=== PATIENT | female | born 1960 | race Hispanic/Latino ===

== ENCOUNTER 2021-01-11 23:57 | Inpatient (IN) | payer SELFPAY ==
[~2021-01-11] VITALS: Ht 152.4 cm; Wt 61.2 kg
[2021-01-12] MEDS ORDERED: ONDANSETRON HCL 4 MG/2 ML VIAL ONE ×2 (00:41→17:45)
[2021-01-12] MEDS ORDERED: HYDROMORPHONE 1 MG/1 ML AMP ONE (00:41)
[2021-01-12 00:56] LABS: BASOPHILS % (AUTO) 0.1 % (0.0-5.0); EOSINOPHILS % (AUTO) 0.2 % (0.0-8.0); LYMPHOCYTES % (AUTO) 2.3 % (21.0-51.0); MEAN CORPUSCULAR HEMOGLOBIN 28.6 pg (27.0-33.0); MEAN CORPUSCULAR HGB CONC 34.6 g/dL (32.0-36.0); MEAN CORPUSCULAR VOLUME 82.8 fL (79-99); MONOCYTES % (AUTO) 1.8 % (3.0-13.0); PLATELET COUNT (AUTO) 484 K/uL (130-400); RED BLOOD CELL COUNT(AUTO) 4.47 MIL/uL (4.00-5.50); RED CELL DISTRIBUTION WIDTH 13.7 % (11.0-15.5); WHITE BLOOD COUNT (AUTO) 26.6 K/uL (4.8-10.8)
[2021-01-12 01:04] LABS: CREATININE 0.7 mg/dL (0.5-1.5); POTASSIUM 3.5 mmol/L (3.5-5.1)
[2021-01-12 01:09] LABS: ALBUMIN 3.2 g/dL (3.5-5.0); BILIRUBIN,TOTAL 1.2 mg/dL (0.2-1.0); TOTAL PROTEIN, SERUM 7.7 g/dL (6.0-8.3)
[2021-01-12] MEDS ORDERED: ZOSYN 3.375GM+NS 50ML 50 ML IV ONE ×3 (02:06→21:20)
[2021-01-12 02:10] LABS: AMYLASE 63 U/L (25-115); LIPASE 83 U/L (114-286)
[2021-01-12] MEDS ORDERED: MORPHINE SULFATE 2 MG/ML 1ML SYG IVP PRN (03:30)
[2021-01-12] MEDS: SODIUM CHLORIDE 0.9% 1000ML 1,000 ML IV SCH ×2 (03:30→13:30)
[2021-01-12] MEDS ORDERED: SODIUM CHLORIDE 0.9% 1000ML 1,000 ML IV SCH (03:30)
[2021-01-12] MEDS ORDERED: NITROGLYCERIN 0.4 MG SL TAB SL PRN (03:30)
[2021-01-12] MEDS ORDERED: SODIUM CHLORIDE 0.9% 1000ML 2,000 ML IV ONE (04:15)
[2021-01-12 05:24] LABS: CREATINE KINASE, TOTAL 56 U/L (21-232); MYOGLOBIN 30 ng/mL (10-92); TROPONIN I < 0.04 ng/mL (0.00-0.06)
[2021-01-12] MEDS ORDERED: ENOXAPARIN SODIUM 30 MG/0.3 ML SQ ONE (08:24)
[2021-01-12] MEDS ORDERED: FAMOTIDINE/PF 20 MG/2 ML VIAL IV ONE ×2 (08:25→21:20)
[2021-01-12] MEDS: ENOXAPARIN SODIUM 30 MG/0.3 ML SQ SCH (09:00)
[2021-01-12] MEDS: FAMOTIDINE/PF 20 MG/2 ML VIAL IV SCH ×2 (09:00→21:00)
[2021-01-12] MEDS: ZOSYN 3.375GM+NS 50ML 50 ML IV SCH ×2 (13:00→21:00)
[2021-01-12] MEDS ORDERED: SODIUM CHLORIDE 0.9% 1000ML 1,000 ML IV ONE (14:34)
[2021-01-12] MEDS ORDERED: HYDROMORPHONE HCL 0.5 MG/0.5 ML ML ONE (17:45)
[2021-01-12 21:36] LABS: APPEARANCE,URINE Clear (CLEAR); BILIRUBIN,URINE Small (NEGATIVE); COLOR,URINE Dark Yellow (YELLOW); GLUCOSE, URINE (UA) Negative (NEGATIVE); KETONES,URINE >=80 mg/dL (NEGATIVE); LEUKOCYTE ESTERASE ,URINE Trace (NEGATIVE); NITRATE,URINE Negative (NEGATIVE); OCCULT BLOOD,URINE Negative (NEGATIVE); PH,URINE 6.5 (5.0-8.0); PROTEIN,URINE Trace mg/dL (NEGATIVE); UROBILINOGEN,URINE 0.2 mg/dL (0.2-1.0)
[2021-01-12 22:10] LABS: BACTERIA,URINE Few /HPF (None Seen); MUCUS,URINE Rare LPF (None Seen); RBC,URINE 0-1 /HPF (0-1); SQUAMOUS EPITHELIAL CELL,UR Rare /HPF (0-2); WBC,URINE 0-1 /HPF (0-1)
[2021-01-12 22:11] LABS: AMORPHOUS SEDIMENT,UR Rare /LPF (None Seen)
[2021-01-12 23:50] VITALS: BP 153/81
[2021-01-13] MEDS: ONDANSETRON HCL 4 MG/2 ML VIAL IV PRN (00:01)
[2021-01-13] MEDS: SODIUM CHLORIDE 0.9% 1000ML 1,000 ML IV SCH ×3 (00:01→19:30)
[2021-01-13] MEDS: HYDROMORPHONE HCL 0.5 MG/0.5 ML ML IVP PRN ×5 (00:02→23:57)
[2021-01-13 03:20] VITALS: BP 145/82
[2021-01-13] MEDS: ZOSYN 3.375GM+NS 50ML 50 ML IV SCH ×3 (04:30→20:18)
[2021-01-13 05:23] LABS: BASOPHILS % (AUTO) 0.4 % (0.0-5.0); EOSINOPHILS % (AUTO) 0.6 % (0.0-8.0); HEMATOCRIT 32.6 % (36-48); LYMPHOCYTES % (AUTO) 6.2 % (21.0-51.0); MEAN CORPUSCULAR HEMOGLOBIN 27.7 pg (27.0-33.0); MEAN CORPUSCULAR HGB CONC 31.9 g/dL (32.0-36.0); MEAN CORPUSCULAR VOLUME 86.9 fL (79-99); MONOCYTES % (AUTO) 4.1 % (3.0-13.0); PLATELET COUNT (AUTO) 407 K/uL (130-400); RED BLOOD CELL COUNT(AUTO) 3.75 MIL/uL (4.00-5.50); RED CELL DISTRIBUTION WIDTH 14.1 % (11.0-15.5); WHITE BLOOD COUNT (AUTO) 16.6 K/uL (4.8-10.8)
[2021-01-13 05:42] LABS: ALBUMIN 2.3 g/dL (3.5-5.0); BILIRUBIN,TOTAL 1.3 mg/dL (0.2-1.0); CREATININE 0.7 mg/dL (0.5-1.5); POTASSIUM 3.9 mmol/L (3.5-5.1); TOTAL PROTEIN, SERUM 6.4 g/dL (6.0-8.3)
[2021-01-13] MEDS: FAMOTIDINE/PF 20 MG/2 ML VIAL IV SCH ×2 (07:52→20:18)
[2021-01-13 07:56] VITALS: BP 129/80
[2021-01-13] MEDS: ENOXAPARIN SODIUM 30 MG/0.3 ML SQ SCH (08:04)
[2021-01-13 11:29] VITALS: BP 132/76
[2021-01-13 16:31] VITALS: BP 141/84
[2021-01-13] MEDS: POLYETHYLENE GLYCOL 3350 17 GM POWD.PACK PO SCH (16:56)
[2021-01-13 19:45] VITALS: BP 138/77
[2021-01-13 23:46] VITALS: BP 156/86
[2021-01-14 03:47] VITALS: BP 149/84
[2021-01-14] MEDS: ZOSYN 3.375GM+NS 50ML 50 ML IV SCH ×3 (04:16→20:29)
[2021-01-14] MEDS: SODIUM CHLORIDE 0.9% 1000ML 1,000 ML IV SCH ×2 (04:21→16:33)
[2021-01-14] MEDS: HYDROMORPHONE HCL 0.5 MG/0.5 ML ML IVP PRN (05:44)
[2021-01-14 06:20] LABS: BASOPHILS % (AUTO) 0.3 % (0.0-5.0); HEMATOCRIT 30.6 % (36-48); LYMPHOCYTES % (AUTO) 5.4 % (21.0-51.0); MEAN CORPUSCULAR HEMOGLOBIN 27.7 pg (27.0-33.0); MEAN CORPUSCULAR HGB CONC 32.7 g/dL (32.0-36.0); MEAN CORPUSCULAR VOLUME 84.8 fL (79-99); MONOCYTES % (AUTO) 4.1 % (3.0-13.0); NEUTROPHILS % (AUTO) 88.6 % (40.0-77.0); PLATELET COUNT (AUTO) 430 K/uL (130-400); RED BLOOD CELL COUNT(AUTO) 3.61 MIL/uL (4.00-5.50); RED CELL DISTRIBUTION WIDTH 13.6 % (11.0-15.5); WHITE BLOOD COUNT (AUTO) 11.4 K/uL (4.8-10.8)
[2021-01-14 06:28] LABS: CREATININE 0.5 mg/dL (0.5-1.5); POTASSIUM 3.1 mmol/L (3.5-5.1)
[2021-01-14] MEDS ORDERED: POTASSIUM CHLORIDE 20MEQ/100ML 100 ML IV PRN (07:45)
[2021-01-14] MEDS ORDERED: POTASSIUM CHLORIDE 10% ELIXIR 20 MEQ/15 ML UDCUP PO PRN (07:45)
[2021-01-14 08:20] LABS: ALBUMIN 2.1 g/dL (3.5-5.0); BILIRUBIN,TOTAL 1.7 mg/dL (0.2-1.0); TOTAL PROTEIN, SERUM 6.1 g/dL (6.0-8.3)
[2021-01-14 08:24] VITALS: BP 138/85
[2021-01-14] MEDS: ENOXAPARIN SODIUM 30 MG/0.3 ML SQ SCH (08:47)
[2021-01-14] MEDS: FAMOTIDINE/PF 20 MG/2 ML VIAL IV SCH ×2 (08:47→20:29)
[2021-01-14] MEDS: POLYETHYLENE GLYCOL 3350 17 GM POWD.PACK PO SCH (08:47)
[2021-01-14 12:28] VITALS: BP 155/92
[2021-01-14] MEDS: HYDROCODONE/ACETAMINOPHEN 5/325 MG TAB PO PRN (12:41)
[2021-01-14] MEDS ORDERED: KETOROLAC TROMETHAMINE 30MG/ML IV SCH (13:45)
[2021-01-14 16:04] VITALS: BP 150/84
[2021-01-14 19:37] VITALS: BP 166/78
[2021-01-14] MEDS: POTASSIUM CHLORIDE 20 MEQ ERTAB PO PRN ×2 (20:39→22:53)
[2021-01-14 23:23] VITALS: BP 152/83
[2021-01-15] MEDS: SODIUM CHLORIDE 0.9% 1000ML 1,000 ML IV SCH ×3 (01:50→21:57)
[2021-01-15] MEDS: POTASSIUM CHLORIDE 20 MEQ ERTAB PO PRN ×5 (02:09→15:03)
[2021-01-15] MEDS: HYDROCODONE/ACETAMINOPHEN 5/325 MG TAB PO PRN ×3 (02:10→17:44)
[2021-01-15 03:46] VITALS: BP 156/82
[2021-01-15] MEDS: ZOSYN 3.375GM+NS 50ML 50 ML IV SCH ×3 (04:31→21:57)
[2021-01-15 06:04] LABS: BASOPHILS % (AUTO) 0.5 % (0.0-5.0); EOSINOPHILS % (AUTO) 2.6 % (0.0-8.0); HEMATOCRIT 29.1 % (36-48); LYMPHOCYTES % (AUTO) 10.1 % (21.0-51.0); MEAN CORPUSCULAR HEMOGLOBIN 28.6 pg (27.0-33.0); MEAN CORPUSCULAR VOLUME 84.1 fL (79-99); MONOCYTES % (AUTO) 6.1 % (3.0-13.0); NEUTROPHILS % (AUTO) 80.1 % (40.0-77.0); PLATELET COUNT (AUTO) 466 K/uL (130-400); RED BLOOD CELL COUNT(AUTO) 3.46 MIL/uL (4.00-5.50); RED CELL DISTRIBUTION WIDTH 13.9 % (11.0-15.5); WHITE BLOOD COUNT (AUTO) 6.6 K/uL (4.8-10.8)
[2021-01-15 06:14] LABS: BILIRUBIN,TOTAL 1.7 mg/dL (0.2-1.0); CREATININE 0.5 mg/dL (0.5-1.5); TOTAL PROTEIN, SERUM 5.9 g/dL (6.0-8.3)
[2021-01-15 09:01] VITALS: BP 156/89
[2021-01-15] MEDS: FAMOTIDINE/PF 20 MG/2 ML VIAL IV SCH ×2 (09:01→21:58)
[2021-01-15] MEDS: ENOXAPARIN SODIUM 30 MG/0.3 ML SQ SCH (09:02)
[2021-01-15] MEDS: POLYETHYLENE GLYCOL 3350 17 GM POWD.PACK PO SCH (09:02)
[2021-01-15 13:11] VITALS: BP 158/83
[2021-01-15 15:00] VITALS: BP 149/92
[2021-01-15 19:15] VITALS: BP 141/81
[2021-01-15] MEDS: HYDROMORPHONE HCL 0.5 MG/0.5 ML ML IVP PRN (22:11)
[2021-01-15 23:53] VITALS: BP 153/84
[2021-01-16] MEDS: HYDROCODONE/ACETAMINOPHEN 5/325 MG TAB PO PRN ×3 (01:48→22:01)
[2021-01-16 03:49] VITALS: BP 142/78
[2021-01-16] MEDS: ZOSYN 3.375GM+NS 50ML 50 ML IV SCH (06:00)
[2021-01-16] MEDS: SODIUM CHLORIDE 0.9% 1000ML 1,000 ML IV SCH ×2 (06:04→17:30)
[2021-01-16] MEDS: HYDROMORPHONE HCL 0.5 MG/0.5 ML ML IVP PRN ×3 (06:15→14:52)
[2021-01-16 06:17] LABS: BASOPHILS % (AUTO) 0.3 % (0.0-5.0); LYMPHOCYTES % (AUTO) 19.6 % (21.0-51.0); MEAN CORPUSCULAR HEMOGLOBIN 27.3 pg (27.0-33.0); MEAN CORPUSCULAR HGB CONC 32.3 g/dL (32.0-36.0); MEAN CORPUSCULAR VOLUME 84.5 fL (79-99); MONOCYTES % (AUTO) 7.4 % (3.0-13.0); PLATELET COUNT (AUTO) 557 K/uL (130-400); RED BLOOD CELL COUNT(AUTO) 4.14 MIL/uL (4.00-5.50); RED CELL DISTRIBUTION WIDTH 13.5 % (11.0-15.5); WHITE BLOOD COUNT (AUTO) 5.8 K/uL (4.8-10.8)
[2021-01-16 06:54] LABS: ALBUMIN 2.3 g/dL (3.5-5.0); BILIRUBIN,TOTAL 2.1 mg/dL (0.2-1.0); CREATININE 0.5 mg/dL (0.5-1.5); TOTAL PROTEIN, SERUM 6.6 g/dL (6.0-8.3)
[2021-01-16 08:00] VITALS: BP 126/78
[2021-01-16] MEDS: POLYETHYLENE GLYCOL 3350 17 GM POWD.PACK PO SCH (08:48)
[2021-01-16] MEDS: ENOXAPARIN SODIUM 30 MG/0.3 ML SQ SCH (08:48)
[2021-01-16] MEDS: FAMOTIDINE/PF 20 MG/2 ML VIAL IV SCH ×2 (08:48→22:01)
[2021-01-16] MEDS: MAG HYDROX/AL HYDROX/SIMETH ES 30 ML SUSP UDCUP PO PRN (09:18)
[2021-01-16] MEDS ORDERED: LABETALOL HCL 5 MG/ML 20ML VIAL IV SCH (10:00)
[2021-01-16 12:00] VITALS: BP 139/90
[2021-01-16 12:59] LABS: ALBUMIN 2.2 g/dL (3.5-5.0); BILIRUBIN,DIRECT 1.4 mg/dL (0.0-0.3); BILIRUBIN,TOTAL 2.2 mg/dL (0.2-1.0); TOTAL PROTEIN, SERUM 6.2 g/dL (6.0-8.3)
[2021-01-16 16:00] VITALS: BP 156/80
[2021-01-16] MEDS: AMOXICILLIN/POTASSIUM CLAV 875-125 TABLET PO SCH (16:32)
[2021-01-16] MEDS: LEVOFLOXACIN 500 MG TABLET PO SCH (16:32)
[2021-01-16 19:10] VITALS: BP 154/90
[2021-01-16 23:24] VITALS: BP 136/87
[2021-01-17] MEDS: AMOXICILLIN/POTASSIUM CLAV 875-125 TABLET PO SCH ×2 (00:26→12:00)
[2021-01-17] MEDS: MAG HYDROX/AL HYDROX/SIMETH ES 30 ML SUSP UDCUP PO PRN ×2 (00:26→06:04)
[2021-01-17 04:08] VITALS: BP 148/84
[2021-01-17] MEDS: SODIUM CHLORIDE 0.9% 1000ML 1,000 ML IV SCH ×2 (04:09→13:19)
[2021-01-17 05:56] LABS: BASOPHILS % (AUTO) 0.4 % (0.0-5.0); EOSINOPHILS % (AUTO) 4.9 % (0.0-8.0); MEAN CORPUSCULAR HEMOGLOBIN 27.6 pg (27.0-33.0); MEAN CORPUSCULAR HGB CONC 32.7 g/dL (32.0-36.0); MEAN CORPUSCULAR VOLUME 84.2 fL (79-99); MONOCYTES % (AUTO) 8.3 % (3.0-13.0); NEUTROPHILS % (AUTO) 69.5 % (40.0-77.0); PLATELET COUNT (AUTO) 589 K/uL (130-400); RED BLOOD CELL COUNT(AUTO) 3.92 MIL/uL (4.00-5.50); RED CELL DISTRIBUTION WIDTH 13.6 % (11.0-15.5); WHITE BLOOD COUNT (AUTO) 5.7 K/uL (4.8-10.8)
[2021-01-17 06:11] LABS: CREATININE 0.6 mg/dL (0.5-1.5); MAGNESIUM 1.9 mg/dL (1.80-2.40); POTASSIUM 3.6 mmol/L (3.5-5.1)
[2021-01-17 08:00] VITALS: BP 154/91
[2021-01-17] MEDS: ONDANSETRON HCL 4 MG/2 ML VIAL IV PRN (08:07)
[2021-01-17 09:18] LABS: ALBUMIN 2.3 g/dL (3.5-5.0); BILIRUBIN,DIRECT 1.3 mg/dL (0.0-0.3); BILIRUBIN,TOTAL 1.9 mg/dL (0.2-1.0); TOTAL PROTEIN, SERUM 6.1 g/dL (6.0-8.3)
[2021-01-17] MEDS: FAMOTIDINE/PF 20 MG/2 ML VIAL IV SCH (09:29)
[2021-01-17] MEDS: POLYETHYLENE GLYCOL 3350 17 GM POWD.PACK PO SCH (09:29)
[2021-01-17] MEDS: ENOXAPARIN SODIUM 30 MG/0.3 ML SQ SCH (09:29)
[2021-01-17 11:41] VITALS: BP 150/94
[2021-01-17] MEDS: HYDROCODONE/ACETAMINOPHEN 5/325 MG TAB PO PRN (12:00)
[2021-01-17] MEDS: LEVOFLOXACIN 500 MG TABLET PO SCH (12:00)
[2021-01-17] MEDS: POTASSIUM CHLORIDE 20 MEQ ERTAB PO PRN (13:01)
[2021-01-17] MEDS ORDERED: LEVO500T89 PO (15:08)
[2021-01-17] MEDS ORDERED: AMOX-429 PO (15:08)
[2021-01-17] MEDS ORDERED: BISA5TAB12 PO (15:08)
[2021-01-17] MEDS ORDERED: SENN8.6T32 PO (15:08)
[2021-01-17 15:39] VITALS: BP 159/90
== END 2021-01-17 17:21 | disposition home or self-care (01) | DRG 871 ==
LOC: EDH 23:57 → EDHIP 23:58 → 3AH 01-12 21:45
PROVIDERS: ADMIT Internal Medicine; ATTEND Internal Medicine
DX: A41.9 Sepsis, unspecified organism (principal); K85.90 Acute pancreatitis without necrosis or infection, unspecified; T81.40XA Infection following a procedure, unspecified, initial encounter; E87.6 Hypokalemia; D64.9 Anemia, unspecified; Z20.822 Contact with and (suspected) exposure to COVID-19; Y83.8 Other surgical procedures as the cause of abnormal reaction of the patient, or of later complication, without mention of misadventure at the time of the procedure; Y92.89 Other specified places as the place of occurrence of the external cause; Z90.49 Acquired absence of other specified parts of digestive tract; Z85.09 Personal history of malignant neoplasm of other digestive organs; Z85.05 Personal history of malignant neoplasm of liver; Z80.0 Family history of malignant neoplasm of digestive organs
CPT/HCPCS: 36415; 71045; 74018; 74176; 80048; 80053; 80076; 81001; 82150; 82550; 83605; 83690; 83735; 83874; 84132; 84145; 84484; 85025; 86140; 87040; 87426; 93005; G0378; J1170; J1650; J1885; J2405; J2543; J3480; J3490; J7030; U0003

== ENCOUNTER 2021-02-03 00:28 | Observation (INO) | payer OTHER ==
[~2021-02-03] VITALS: Ht 154.9 cm; Wt 58.5 kg
[~2021-02-03 00:28] MED LIST: BISA5TAB12 PO; CEPH500B PO; POLY17PO4 PO; SENN8.6T32 PO; TRAM-355 PO
[2021-02-03] MEDS ORDERED: MORPHINE SULFATE 4 MG/1ML SYG ONE (02:20)
[2021-02-03] MEDS ORDERED: ONDANSETRON HCL 4 MG/2 ML VIAL ONE (02:20)
[2021-02-03 02:24] LABS: BASOPHILS % (AUTO) 0.5 % (0.0-5.0); EOSINOPHILS % (AUTO) 0.4 % (0.0-8.0); HEMATOCRIT 33.4 % (36-48); LYMPHOCYTES % (AUTO) 6.1 % (21.0-51.0); MEAN CORPUSCULAR HEMOGLOBIN 27.6 pg (27.0-33.0); MEAN CORPUSCULAR HGB CONC 32.9 g/dL (32.0-36.0); MEAN CORPUSCULAR VOLUME 83.9 fL (79-99); MONOCYTES % (AUTO) 5.8 % (3.0-13.0); RED BLOOD CELL COUNT(AUTO) 3.98 MIL/uL (4.00-5.50); WHITE BLOOD COUNT (AUTO) 10.2 K/uL (4.8-10.8)
[2021-02-03 02:34] LABS: PLATELET COUNT (AUTO) 719 K/uL (130-400)
[2021-02-03 02:40] LABS: INR 1.2 (0.85-1.15); PROTHROMBIN TIME 12.9 SEC (9.6-11.6)
[2021-02-03 02:41] LABS: PARTIAL THROMBOPLASTIN TIME 29.2 SEC (26.3-35.5)
[2021-02-03 02:53] LABS: PLATELET MORPHOLOGY COMMENT MARKED INCREASE
[2021-02-03 02:57] LABS: ALBUMIN 2.4 g/dL (3.5-5.0); BILIRUBIN,TOTAL 3.2 mg/dL (0.2-1.0); CREATININE 0.6 mg/dL (0.5-1.5); POTASSIUM 3.2 mmol/L (3.5-5.1); TOTAL PROTEIN, SERUM 6.9 g/dL (6.0-8.3)
[2021-02-03] MEDS ORDERED: IOHEXOL 350 MG/ML 100ML INFUS..BTL IV ONE (03:49)
[2021-02-03] MEDS ORDERED: METOCLOPRAMIDE 10 MG/2 ML VIAL ONE (04:56)
[2021-02-03] MEDS ORDERED: FENTANYL CITRATE PF 50 MCG/1 ML 2ML VIAL ONE (04:57)
[2021-02-03] MEDS ORDERED: SODIUM CHLORIDE 0.9% 1000ML 1,000 ML IV ONE (05:17)
[2021-02-03] MEDS ORDERED: HYDROMORPHONE 1 MG/1 ML AMP ONE (05:17)
[2021-02-03] MEDS ORDERED: ONDANSETRON HCL 4 MG/2 ML VIAL IV PRN (05:30)
[2021-02-03] MEDS: LACTATED RINGERS 1000ML 1,000 ML IV SCH ×3 (05:30→20:29)
[2021-02-03] MEDS: LEVOFLOXACIN 500 MG/D5W 100 ML 100 ML IV SCH (05:30)
[2021-02-03] MEDS: FAMOTIDINE/PF 20 MG/2 ML VIAL IV SCH ×2 (09:00→20:29)
[2021-02-03] MEDS ORDERED: LEVOFLOXACIN 500 MG/D5W 100 ML 100 ML ONE (09:31)
[2021-02-03] MEDS ORDERED: FAMOTIDINE/PF 20 MG/2 ML VIAL IV ONE (09:32)
[2021-02-03] MEDS ORDERED: MORPHINE SULFATE 2 MG/ML 1ML SYG ONE (09:32)
[2021-02-03] MEDS ORDERED: LACTATED RINGERS 1000ML 1,000 ML IV ONE (09:42)
[2021-02-03] MEDS ORDERED: HYDRALAZINE HCL 20 MG/ML VIAL ONE (10:10)
[2021-02-03] MEDS ORDERED: HYDRALAZINE HCL 20 MG/ML VIAL IV PRN (10:15)
[2021-02-03 12:48] VITALS: BP 149/89
[2021-02-03 16:00] VITALS: BP 130/86
[2021-02-03] MEDS: MORPHINE SULFATE 2 MG/ML 1ML SYG IV PRN ×2 (16:14→20:29)
[2021-02-03 19:26] VITALS: BP 146/82
[2021-02-03] MEDS: HYDROMORPHONE 1 MG/1 ML AMP IV PRN (22:30)
[2021-02-03 23:19] VITALS: BP 149/88
[2021-02-04] MEDS: MORPHINE SULFATE 2 MG/ML 1ML SYG IV PRN ×3 (01:51→11:56)
[2021-02-04] MEDS: HYDROMORPHONE 1 MG/1 ML AMP IV PRN ×2 (03:02→08:11)
[2021-02-04 03:42] VITALS: BP 146/81
[2021-02-04 04:39] LABS: BASOPHILS % (AUTO) 0.6 % (0.0-5.0); EOSINOPHILS % (AUTO) 1.4 % (0.0-8.0); HEMATOCRIT 30.6 % (36-48); LYMPHOCYTES % (AUTO) 11.3 % (21.0-51.0); MEAN CORPUSCULAR HEMOGLOBIN 27.5 pg (27.0-33.0); MEAN CORPUSCULAR HGB CONC 32.4 g/dL (32.0-36.0); NEUTROPHILS % (AUTO) 75.1 % (40.0-77.0); PLATELET COUNT (AUTO) 578 K/uL (130-400); RED CELL DISTRIBUTION WIDTH 14.2 % (11.0-15.5); WHITE BLOOD COUNT (AUTO) 8.4 K/uL (4.8-10.8)
[2021-02-04 05:10] LABS: BILIRUBIN,TOTAL 2.4 mg/dL (0.2-1.0); CREATININE 0.6 mg/dL (0.5-1.5); MAGNESIUM 1.7 mg/dL (1.80-2.40); POTASSIUM 3.3 mmol/L (3.5-5.1)
[2021-02-04] MEDS: LACTATED RINGERS 1000ML 1,000 ML IV SCH ×2 (05:30→11:54)
[2021-02-04] MEDS: LEVOFLOXACIN 500 MG/D5W 100 ML 100 ML IV SCH (05:53)
[2021-02-04 08:00] VITALS: BP 146/89
[2021-02-04] MEDS: FAMOTIDINE/PF 20 MG/2 ML VIAL IV SCH (08:11)
[2021-02-04] MEDS ORDERED: FENTANYL 25 MCG/HR PATCH TD SCH (10:30)
[2021-02-04] MEDS ORDERED: POTASSIUM CHLORIDE 20 MEQ ERTAB PO SCH (10:30)
[2021-02-04 11:56] VITALS: BP 149/86
[2021-02-04] MEDS ORDERED: LUBIPROSTONE 24 MCG CAP PO SCH (12:45)
[2021-02-04] MEDS ORDERED: LUBI24CA2 PO (12:57)
== END 2021-02-04 17:53 | disposition home or self-care (01) ==
LOC: EDH 00:28 → EDHIP 05:25 → INTOOBSV 05:25 → 4DH 12:48
PROVIDERS: ADMIT Hospitalist; ATTEND Hospitalist
DX: R10.9 Unspecified abdominal pain (principal); R18.0 Malignant ascites; M62.82 Rhabdomyolysis; E86.0 Dehydration; D47.3 Essential (hemorrhagic) thrombocythemia; Z85.00 Personal history of malignant neoplasm of unspecified digestive organ; Z90.49 Acquired absence of other specified parts of digestive tract
CPT/HCPCS: 36415 ×2; 74177; 80053 ×2; 82550 ×2; 82948; 83605; 83690; 83735; 84484; 85025 ×2; 85610; 85730; 87040 ×2; 93005; 96361 ×2; 96365; 96375; 96376 ×2; 99285; G0378 ×35; J0360; J1170 ×4; J1956 ×2; J2270; J2405; J2765; J3010; J3490 ×3; J7030; J7120 ×3; Q9967

== ENCOUNTER 2021-02-10 20:41 | Inpatient (IN) | payer OTHER ==
[~2021-02-10] VITALS: Ht 154.9 cm; Wt 66.7 kg
[~2021-02-10 20:41] MED LIST changes: -CEPH500B PO; +LUBI24CA2 PO
[2021-02-10] MEDS ORDERED: SODIUM CHLORIDE 0.9% 1000ML 1,000 ML IV ONE ×2 (21:31→22:44)
[2021-02-10 21:39] LABS: BASOPHILS % (AUTO) 0.2 % (0.0-5.0); EOSINOPHILS % (AUTO) 0.4 % (0.0-8.0); HEMATOCRIT 30.1 % (36-48); LYMPHOCYTES % (AUTO) 6.4 % (21.0-51.0); MEAN CORPUSCULAR HEMOGLOBIN 27.1 pg (27.0-33.0); MEAN CORPUSCULAR HGB CONC 32.6 g/dL (32.0-36.0); MEAN CORPUSCULAR VOLUME 83.1 fL (79-99); MONOCYTES % (AUTO) 6.7 % (3.0-13.0); NEUTROPHILS % (AUTO) 85.3 % (40.0-77.0); PLATELET COUNT (AUTO) 623 K/uL (130-400); RED BLOOD CELL COUNT(AUTO) 3.62 MIL/uL (4.00-5.50); RED CELL DISTRIBUTION WIDTH 14.1 % (11.0-15.5); WHITE BLOOD COUNT (AUTO) 11.3 K/uL (4.8-10.8)
[2021-02-10 21:51] LABS: CREATININE 0.5 mg/dL (0.5-1.5); INR 1.24 (0.85-1.15); POTASSIUM 3.7 mmol/L (3.5-5.1); PROTHROMBIN TIME 13.3 SEC (9.6-11.6)
[2021-02-10 21:53] LABS: PARTIAL THROMBOPLASTIN TIME 32.6 SEC (26.3-35.5)
[2021-02-10 21:55] LABS: BILIRUBIN,TOTAL 3.1 mg/dL (0.2-1.0); TOTAL PROTEIN, SERUM 6.3 g/dL (6.0-8.3)
[2021-02-10 21:58] LABS: B-TYPE NATRIURETIC PEPTIDE 23 pg/mL (0-100)
[2021-02-10] MEDS ORDERED: ONDANSETRON HCL 4 MG/2 ML VIAL ONE (22:44)
[2021-02-10] MEDS ORDERED: FAMOTIDINE/PF 20 MG/2 ML VIAL IV ONE (22:44)
[2021-02-11] MEDS ORDERED: SODIUM CHLORIDE 0.9% 1000ML 1,000 ML IV ONE ×2 (00:11→03:46)
[2021-02-11 00:49] LABS: APPEARANCE,URINE Clear (CLEAR); BILIRUBIN,URINE Negative (NEGATIVE); COLOR,URINE Yellow (YELLOW); GLUCOSE, URINE (UA) Negative (NEGATIVE); KETONES,URINE 15 mg/dL (NEGATIVE); LEUKOCYTE ESTERASE ,URINE Trace (NEGATIVE); NITRATE,URINE Negative (NEGATIVE); OCCULT BLOOD,URINE Negative (NEGATIVE); PH,URINE 5.5 (5.0-8.0); PROTEIN,URINE Negative (NEGATIVE); UROBILINOGEN,URINE 0.2 mg/dL (0.2-1.0)
[2021-02-11 01:20] LABS: BACTERIA,URINE Rare /HPF (None Seen); SQUAMOUS EPITHELIAL CELL,UR None Seen /HPF (0-2); WBC,URINE 0-1 /HPF (0-1)
[2021-02-11] MEDS: SODIUM CHLORIDE 0.9% 1000ML 1,000 ML IV SCH ×3 (03:30→23:30)
[2021-02-11] MEDS ORDERED: FENTANYL 75 MCG/HR PATCH TD SCH (03:45)
[2021-02-11] MEDS: CEFTRIAXONE SODIUM 1 GM IVP SCH ×2 (03:45→15:45)
[2021-02-11] MEDS ORDERED: HYDROCODONE/ACETAMINOPHEN 5/325 MG TAB PO PRN (03:45)
[2021-02-11] MEDS ORDERED: HYDROCODONE/ACETAMINOPHEN 5/325 MG TAB ONE (03:46)
[2021-02-11] MEDS ORDERED: FENTANYL 75 MCG/HR PATCH TD ONE (03:48)
[2021-02-11] MEDS ORDERED: CEFTRIAXONE SODIUM 1 GM ONE ×2 (04:16→14:04)
[2021-02-11 06:24] LABS: BASOPHILS % (AUTO) 0.3 % (0.0-5.0); EOSINOPHILS % (AUTO) 0.2 % (0.0-8.0); HEMATOCRIT 27.5 % (36-48); MEAN CORPUSCULAR HGB CONC 32.4 g/dL (32.0-36.0); MEAN CORPUSCULAR VOLUME 83.3 fL (79-99); MONOCYTES % (AUTO) 5.6 % (3.0-13.0); NEUTROPHILS % (AUTO) 86.9 % (40.0-77.0); PLATELET COUNT (AUTO) 571 K/uL (130-400); RED CELL DISTRIBUTION WIDTH 14.2 % (11.0-15.5); WHITE BLOOD COUNT (AUTO) 11.3 K/uL (4.8-10.8)
[2021-02-11 06:40] LABS: % IRON SATURATION 5.7 % (22-44)
[2021-02-11 06:49] LABS: ALBUMIN 1.7 g/dL (3.5-5.0); BILIRUBIN,TOTAL 2.6 mg/dL (0.2-1.0); CREATININE 0.4 mg/dL (0.5-1.5); POTASSIUM 3.4 mmol/L (3.5-5.1); TOTAL PROTEIN, SERUM 5.7 g/dL (6.0-8.3)
[2021-02-11 08:10] LABS: ERYTHROCYTE SEDIMENTATION RATE 63 MM/HR (0-30)
[2021-02-11] MEDS: FAMOTIDINE/PF 20 MG/2 ML VIAL IV SCH ×2 (09:00→21:28)
[2021-02-11] MEDS ORDERED: FAMOTIDINE/PF 20 MG/2 ML VIAL IV ONE (09:01)
[2021-02-11] MEDS ORDERED: HYDROCODONE/ACETAMINOPHEN 10/325 MG TAB ONE ×2 (11:04→17:42)
[2021-02-11] MEDS ORDERED: SODIUM CHLORIDE 0.9% 50 ML IV ONE (14:07)
[2021-02-11 14:53] LABS: BILIRUBIN,DIRECT 1.7 mg/dL (0.0-0.3); BILIRUBIN,TOTAL 2.7 mg/dL (0.2-1.0)
[2021-02-11] MEDS ORDERED: MINERAL OIL/PETROLATUM,WHITE 454 GM CREAM.GM. TP ONE (18:30)
[2021-02-11 20:59] VITALS: BP 152/81
[2021-02-11 23:07] VITALS: BP 153/85
[2021-02-12] VITALS (11 sets, daily range): BP systolic 141–166; BP diastolic 83–103
[2021-02-12] MEDS: HYDROCODONE/ACETAMINOPHEN 10/325 MG TAB PO PRN (02:46)
[2021-02-12] MEDS: CEFTRIAXONE SODIUM 1 GM IVP SCH ×2 (03:22→15:39)
[2021-02-12] MEDS: SODIUM CHLORIDE 0.9% 1000ML 1,000 ML IV SCH ×2 (04:34→15:40)
[2021-02-12 06:33] LABS: BASOPHILS % (AUTO) 0.3 % (0.0-5.0); EOSINOPHILS % (AUTO) 0.6 % (0.0-8.0); HEMATOCRIT 27.3 % (36-48); LYMPHOCYTES % (AUTO) 7.6 % (21.0-51.0); MEAN CORPUSCULAR HEMOGLOBIN 26.7 pg (27.0-33.0); MEAN CORPUSCULAR HGB CONC 32.2 g/dL (32.0-36.0); MEAN CORPUSCULAR VOLUME 82.7 fL (79-99); MONOCYTES % (AUTO) 7.5 % (3.0-13.0); NEUTROPHILS % (AUTO) 83.1 % (40.0-77.0); PLATELET COUNT (AUTO) 609 K/uL (130-400); RED CELL DISTRIBUTION WIDTH 14.3 % (11.0-15.5); WHITE BLOOD COUNT (AUTO) 10.8 K/uL (4.8-10.8)
[2021-02-12 06:43] LABS: CREATININE 0.4 mg/dL (0.5-1.5); MAGNESIUM 1.5 mg/dL (1.80-2.40); POTASSIUM 3.7 mmol/L (3.5-5.1)
[2021-02-12] MEDS: FAMOTIDINE/PF 20 MG/2 ML VIAL IV SCH ×2 (07:52→21:00)
[2021-02-12] MEDS ORDERED: MAGNESIUM 2GM PREMIX 50ML 50 ML IV PRN (08:15)
[2021-02-12 09:57] LABS: APPEARANCE,URINE Clear (CLEAR); BILIRUBIN,URINE Large (NEGATIVE); GLUCOSE, URINE (UA) Negative (NEGATIVE); KETONES,URINE >=160 mg/dL (NEGATIVE); LEUKOCYTE ESTERASE ,URINE Small (NEGATIVE); NITRATE,URINE Negative (NEGATIVE); OCCULT BLOOD,URINE Negative (NEGATIVE); PROTEIN,URINE POS 2+ mg/dL (NEGATIVE)
[2021-02-12 10:12] LABS: COLOR,URINE BROWN (YELLOW)
[2021-02-12 10:13] LABS: BACTERIA,URINE Few /HPF (None Seen); RBC,URINE 0-1 /HPF (0-1)
[2021-02-12 12:45] LABS: INR 1.43 (0.85-1.15); PROTHROMBIN TIME 15.1 SEC (9.6-11.6)
[2021-02-12] MEDS ORDERED: FENTANYL CITRATE PF 50 MCG/1 ML 2ML VIAL ONE (13:41)
[2021-02-12] MEDS: HYDROCODONE/ACETAMINOPHEN 5/325 MG TAB PO PRN ×2 (17:14→21:16)
[2021-02-12 18:20] LABS: APPEARANCE BODY FLUID SLIGHTLY CLOUDY (CLEAR); COLOR,BODY FLUID DARK YELLOW (LT YELLOW); SPECIMENTYPE,BODY FLUID ASPIRATE; TOTAL VOLUME,BODY FLUID 600 mL
[2021-02-12 18:21] LABS: BODY FLUID RBC 28 /cu. mm.; BODY FLUID WBC 163 /cu. mm.
[2021-02-12 18:39] LABS: BF LYMPHOCYTE 60 %
[2021-02-13] VITALS (7 sets, daily range): BP systolic 101–150; BP diastolic 52–98
[2021-02-13] MEDS: HYDROCODONE/ACETAMINOPHEN 5/325 MG TAB PO PRN ×2 (01:18→05:16)
[2021-02-13] MEDS: SODIUM CHLORIDE 0.9% 1000ML 1,000 ML IV SCH ×2 (02:54→11:38)
[2021-02-13] MEDS: CEFTRIAXONE SODIUM 1 GM IVP SCH (03:44)
[2021-02-13 06:45] LABS: BASOPHILS % (AUTO) 0.2 % (0.0-5.0); EOSINOPHILS % (AUTO) 0.3 % (0.0-8.0); HEMATOCRIT 28.8 % (36-48); LYMPHOCYTES % (AUTO) 6.1 % (21.0-51.0); MEAN CORPUSCULAR HEMOGLOBIN 26.4 pg (27.0-33.0); MEAN CORPUSCULAR HGB CONC 31.9 g/dL (32.0-36.0); MEAN CORPUSCULAR VOLUME 82.8 fL (79-99); MONOCYTES % (AUTO) 7.7 % (3.0-13.0); NEUTROPHILS % (AUTO) 84.1 % (40.0-77.0); PLATELET COUNT (AUTO) 693 K/uL (130-400); RED BLOOD CELL COUNT(AUTO) 3.48 MIL/uL (4.00-5.50); RED CELL DISTRIBUTION WIDTH 14.3 % (11.0-15.5); WHITE BLOOD COUNT (AUTO) 11.2 K/uL (4.8-10.8)
[2021-02-13 07:04] LABS: CREATININE 0.6 mg/dL (0.5-1.5); POTASSIUM 3.6 mmol/L (3.5-5.1)
[2021-02-13] MEDS: ENOXAPARIN SODIUM 40 MG/0.4 ML SYRINGE SQ SCH (08:16)
[2021-02-13] MEDS: FAMOTIDINE/PF 20 MG/2 ML VIAL IV SCH ×2 (08:16→20:56)
[2021-02-13 10:26] LABS: ALBUMIN 1.8 g/dL (3.5-5.0); BILIRUBIN,DIRECT 2.3 mg/dL (0.0-0.3); BILIRUBIN,TOTAL 3.3 mg/dL (0.2-1.0); TOTAL PROTEIN, SERUM 5.9 g/dL (6.0-8.3)
[2021-02-13] MEDS: HYDROCODONE/ACETAMINOPHEN 10/325 MG TAB PO PRN (11:38)
[2021-02-13] MEDS: ZOSYN 3.375GM+NS 50ML 50 ML IV SCH ×2 (13:50→20:56)
[2021-02-13] MEDS: MORPHINE SULFATE 2 MG/ML 1ML SYG IVP PRN ×2 (15:52→21:36)
[2021-02-13] MEDS: ONDANSETRON HCL 4 MG/2 ML VIAL IVP PRN ×2 (15:52→21:36)
[2021-02-13] MEDS: HYDROCODONE/ACETAMINOPHEN 5/325 MG TAB PO SCH (19:40)
[2021-02-13] MEDS ORDERED: METOPROLOL TARTRATE 25 MG TAB PO SCH (21:30)
[2021-02-14] VITALS (25 sets, daily range): BP systolic 99–155; BP diastolic 66–91
[2021-02-14] MEDS: SODIUM CHLORIDE 0.9% 1000ML 1,000 ML IV SCH ×4 (00:38→22:25)
[2021-02-14] MEDS: HYDROCODONE/ACETAMINOPHEN 5/325 MG TAB PO SCH ×3 (02:00→18:00)
[2021-02-14] MEDS: ZOSYN 3.375GM+NS 50ML 50 ML IV SCH ×3 (04:40→20:16)
[2021-02-14 06:25] LABS: BASOPHILS % (AUTO) 0.2 % (0.0-5.0); LYMPHOCYTES % (AUTO) 3.3 % (21.0-51.0); MEAN CORPUSCULAR HEMOGLOBIN 27.4 pg (27.0-33.0); MEAN CORPUSCULAR VOLUME 83.1 fL (79-99); NEUTROPHILS % (AUTO) 90.5 % (40.0-77.0); RED BLOOD CELL COUNT(AUTO) 3.61 MIL/uL (4.00-5.50); RED CELL DISTRIBUTION WIDTH 14.6 % (11.0-15.5)
[2021-02-14 06:41] LABS: CREATININE 0.9 mg/dL (0.5-1.5); PLATELET COUNT (AUTO) 769 K/uL (130-400); POTASSIUM 3.9 mmol/L (3.5-5.1)
[2021-02-14 08:13] LABS: ALBUMIN 1.6 g/dL (3.5-5.0); BILIRUBIN,TOTAL 3.1 mg/dL (0.2-1.0); TOTAL PROTEIN, SERUM 5.3 g/dL (6.0-8.3)
[2021-02-14] MEDS: ENOXAPARIN SODIUM 40 MG/0.4 ML SYRINGE SQ SCH (08:35)
[2021-02-14] MEDS: FAMOTIDINE/PF 20 MG/2 ML VIAL IV SCH ×2 (08:36→20:16)
[2021-02-14] MEDS ORDERED: INDOMETHACIN 50 MG SUPP.RECT RC SCH (11:00)
[2021-02-14] MEDS ORDERED: MIDAZOLAM HCL 1 MG/ML 2ML VIAL ONE (12:17)
[2021-02-14] MEDS ORDERED: PROPOFOL 10 MG/ML 20ML VIAL IV ONE (12:17)
[2021-02-14] MEDS ORDERED: FENTANYL CITRATE PF 50 MCG/1 ML 2ML VIAL ONE (12:17)
[2021-02-14] MEDS ORDERED: SUCCINYLCHOLINE 200MG/10ML SYR ONE (12:18)
[2021-02-14] MEDS ORDERED: LIDOCAINE HCL 2% 20ML ONE (12:18)
[2021-02-14] MEDS ORDERED: IOHEXOL-350 50ML VIAL IV ONE (12:31)
[2021-02-14] MEDS ORDERED: EPINEPHRINE 1 MG/ML AMPULE ONE (13:04)
[2021-02-14] MEDS ORDERED: PHENYLEPHRINE HCL 10 MG/ML 1ML VIAL IV ONE (13:04)
[2021-02-14] MEDS ORDERED: EPHEDRINE SULFATE 50 MG/ML AMPULE ONE (13:32)
[2021-02-14] MEDS: FLUCONAZOLE 200 MG/NS 100 ML 100 ML IV SCH (15:28)
[2021-02-15] VITALS: BP 125/81
[2021-02-15] MEDS: HYDROCODONE/ACETAMINOPHEN 5/325 MG TAB PO SCH ×3 (02:00→18:11)
[2021-02-15 04:00] VITALS: BP 125/81
[2021-02-15] MEDS: ZOSYN 3.375GM+NS 50ML 50 ML IV SCH ×2 (04:47→15:53)
[2021-02-15] MEDS: SODIUM CHLORIDE 0.9% 1000ML 1,000 ML IV SCH ×2 (04:47→14:54)
[2021-02-15 06:24] LABS: HEMATOCRIT 21.7 % (36-48); MEAN CORPUSCULAR HGB CONC 32.3 g/dL (32.0-36.0); MEAN CORPUSCULAR VOLUME 83.8 fL (79-99); NUCLEATED RED BLOOD CELLS 0.1 % (0.0-0.19); RED BLOOD CELL COUNT(AUTO) 2.59 MIL/uL (4.00-5.50); WHITE BLOOD COUNT (AUTO) 17.3 K/uL (4.8-10.8)
[2021-02-15 06:38] LABS: CREATININE 0.7 mg/dL (0.5-1.5); POTASSIUM 3.9 mmol/L (3.5-5.1)
[2021-02-15 07:30] VITALS: BP 130/81
[2021-02-15 08:36] LABS: INR 1.3 (0.85-1.15); PROTHROMBIN TIME 13.8 SEC (9.6-11.6)
[2021-02-15 08:37] LABS: PARTIAL THROMBOPLASTIN TIME 36.7 SEC (26.3-35.5)
[2021-02-15] MEDS: FAMOTIDINE/PF 20 MG/2 ML VIAL IV SCH (10:41)
[2021-02-15] MEDS: ENOXAPARIN SODIUM 40 MG/0.4 ML SYRINGE SQ SCH (10:43)
[2021-02-15 11:26] VITALS: BP 129/77
[2021-02-15] MEDS: MORPHINE SULFATE 2 MG/ML 1ML SYG IVP PRN (14:48)
[2021-02-15] MEDS: FLUCONAZOLE 200 MG/NS 100 ML 100 ML IV SCH (14:48)
[2021-02-15 16:30] VITALS: BP 135/87
[2021-02-15 18:58] VITALS: BP 132/83
== END 2021-02-15 21:45 | disposition short-term general hospital (02) | DRG 371 ==
LOC: EDH 20:41 → EDHIP 02-11 03:19 → 2DH 02-11 20:28
PROVIDERS: ADMIT Internal Medicine; ATTEND Internal Medicine
PROC: 0W9G3ZZ Drainage of Peritoneal Cavity, Percutaneous Approach (ICD-10-PCS; principal; 2021-02-12)
PROC: 0F798ZZ Dilation of Common Bile Duct, Via Natural or Artificial Opening Endoscopic (ICD-10-PCS; 2021-02-14)
DX: K65.1 Peritoneal abscess (principal); K83.1 Obstruction of bile duct; C22.1 Intrahepatic bile duct carcinoma; E87.1 Hypo-osmolality and hyponatremia; R17 Unspecified jaundice; C25.9 Malignant neoplasm of pancreas, unspecified; R18.8 Other ascites; D64.9 Anemia, unspecified; R33.9 Retention of urine, unspecified; N28.9 Disorder of kidney and ureter, unspecified; K83.8 Other specified diseases of biliary tract; E88.09 Other disorders of plasma-protein metabolism, not elsewhere classified; D72.829 Elevated white blood cell count, unspecified; K81.9 Cholecystitis, unspecified; E83.42 Hypomagnesemia; R53.81 Other malaise; R74.8 Abnormal levels of other serum enzymes; Z20.822 Contact with and (suspected) exposure to COVID-19; Z85.09 Personal history of malignant neoplasm of other digestive organs; Z90.49 Acquired absence of other specified parts of digestive tract; Z85.05 Personal history of malignant neoplasm of liver; Z83.3 Family history of diabetes mellitus; Z80.0 Family history of malignant neoplasm of digestive organs
CPT/HCPCS: 36415; 43262; 43264; 57010; 71045; 74176; 74328; 74330; 76705; 76856; 76942; 78226; 80048; 80053; 80061; 80076; 81001; 82140; 82150; 82247; 82248; 82550; 83540; 83550; 83605; 83615; 83690; 83735; 83880; 84145; 84157; 84484; 85025; 85027; 85378; 85610; 85651; 85730; 86304; 87040; 87071; 87088; 87205; 87426; 89051; 93005; 93306; 93971; A4606; A9537; C1769; C1773; G0378; J0171; J0330; J0696; J1450; J1650; J2250; J2370; J2405; J2543; J2704; J3010; J3490; J7030; Q9967